=== PATIENT | male | born 2000 ===

== ENCOUNTER 2023-08-31 13:48 | Outpatient (RCR) | payer BC, SELFPAY | END 2023-08-31 23:59 | disposition home or self-care (01) | LOC: ROT 13:48 | PROVIDERS: ATTENDING PHYSICIAN Nurse Practitioner Adult Health; PRIMARYCARE PHYSICIAN Family Medicine | DX: S06.9X5D Unspecified intracranial injury with loss of consciousness greater than 24 hours with return to pre-existing conscious level, subsequent encounter (principal); J38.00 Paralysis of vocal cords and larynx, unspecified; Z73.6 Limitation of activities due to disability; R49.0 Dysphonia; R41.841 Cognitive communication deficit | CPT/HCPCS: 97110; 97112; 97129; 97130; 97140; 97530; 97535 ==

== ENCOUNTER 2023-10-05 14:19 | Outpatient (RCR) | payer BC, SELFPAY | END 2023-10-05 23:59 | disposition home or self-care (01) | LOC: ROT 14:19 | PROVIDERS: ATTENDING PHYSICIAN Nurse Practitioner Adult Health; PRIMARYCARE PHYSICIAN Family Medicine | DX: S06.9X5D Unspecified intracranial injury with loss of consciousness greater than 24 hours with return to pre-existing conscious level, subsequent encounter (principal); Z73.6 Limitation of activities due to disability | CPT/HCPCS: 97110; 97112; 97129; 97130; 97140; 97530; 97535 ==

== ENCOUNTER 2023-10-30 13:18 | Outpatient (RCR) | payer BC, SELFPAY | END 2023-10-30 23:59 | disposition home or self-care (01) | LOC: ROT 13:18 | PROVIDERS: ATTENDING PHYSICIAN Nurse Practitioner Adult Health; PRIMARYCARE PHYSICIAN Family Medicine | DX: S06.9X5D Unspecified intracranial injury with loss of consciousness greater than 24 hours with return to pre-existing conscious level, subsequent encounter (principal); Z73.6 Limitation of activities due to disability | CPT/HCPCS: 97110; 97112; 97129; 97130; 97140; 97530; 97535 ==